=== PATIENT | female | born 1990 | race African-American/Black ===

== ENCOUNTER 2020-12-07 18:11 | Observation (INO) ==
[2020-12-07] MEDS ORDERED: SODIUM CHLORIDE 0.9% 1,000 ML IV STA (19:12)
[2020-12-07] MEDS ORDERED: ACETAMINOPHEN 500 MG TABLET PO STA (19:19)
[2020-12-07 19:48] LABS: Basophils % 0.1 % (0.0-0.8); Hematocrit 33.5 VOL% (35.7-47.0); Hemoglobin 10.5 GM/DL (12.0-16.0); Immature Granulocytes % 0.8 %; Immature Granulocytes Absolute 0.15 #; Lymphocytes # 0.8 10*3/uL (1.4-4.0); Lymphocytes % 4.2 % (21.3-54.2); Mean Corpuscular HGB Conc 31.3 GM/DL (32-36); Mean Corpuscular Volume 84.2 FL (87-102); Monocytes % 6.9 % (1.7-12.7); Platelet Count 405 T/CUMM (130-400); Red Blood Count 3.98 MC/CUMM (3.8-5.5); Red Cell Distribution Width 14.4 % (9.3-17.3); White Blood Count 18.4 T/CUMM (4-12)
[2020-12-07 20:08] LABS: Albumin 3.1 G/DL (3.4-5.0); Bilirubin,Total 0.5 MG/DL (0.20-1.00); Calcium 9.1 MG/DL (8.5-10.1); Osmolality,Calculated 269.2 MOS/KG (273-304); Potassium 4.1 MMOL/L (3.5-5.1)
[2020-12-07 20:26] LABS: Bacteria,Urine Many /HPF (Few); Bilirubin,Urine Negative (Negative); Blood, Urine Moderate mg/dL (Negative); Glucose,Urine (UA) Negative (Negative); Ketones,Urine Negative (Negative); Mucus,Urine Occasional /LPF (Occasional); Nitrite,Urine Negative (Negative); Protein,Urine 100 MG/DL; RBC,Urine 52 /HPF (0-4); Squamous Epithelial Cell,Urine Occasional /HPF (0-10); Urine Appearance CLOUDY (Clear); Urine Color Yellow (Yellow); Urine Specific Gravity 1.016 (1.001-1.035)
[2020-12-07] MEDS ORDERED: cefTRIAXone 1,000 MG in SODIUM CHLORIDE 0.9% 100 ML IV STA (20:30)
[2020-12-07 20:43] LABS: Lymphocytes 4 % (20-55); Segmented Neutrophils 94 % (50-85); Total Cells Counted 100
[2020-12-07] MEDS ORDERED: hydrALAZINE 20 MG/1 ML VIAL IV PRN (20:46)
[2020-12-07] MEDS ORDERED: ONDANSETRON 4 MG/2 ML VIAL IV PRN (20:46)
[2020-12-07] MEDS ORDERED: GLUCAGON 1 MG VIAL IM PRN (20:46)
[2020-12-07] MEDS ORDERED: ZALEPLON 5 MG CAPSULE PO PRN (20:46)
[2020-12-07] MEDS ORDERED: guaiFENesin/DM ER 600-30 MG TABLET PO PRN (20:46)
[2020-12-07] MEDS ORDERED: NICOTINE 21 MG/24 HR PATCH TRANSDERM PRN (20:46)
[2020-12-07] MEDS ORDERED: DEXTROSE 50% 25 GM/50 ML VIAL IV PRN (20:46)
[2020-12-07] MEDS ORDERED: diphenhydrAMINE CAP 25 MG CAPSULE PO PRN (20:46)
[2020-12-07] MEDS: ENOXAPARIN 40 MG/0.4 ML SYRINGE SUBCUT SCH (22:38)
[2020-12-08] MEDS: MORPHINE 2 MG/1 ML SYRINGE IV PRN ×3 (02:14→21:23)
[2020-12-08] MEDS: ACETAMINOPHEN 325 MG TABLET PO PRN ×3 (04:49→23:36)
[2020-12-08] MEDS: SODIUM CHLORIDE 0.9% 1,000 ML IV SCH ×3 (05:51→16:25)
[2020-12-08 06:49] LABS: Basophils % 0.1 % (0.0-0.8); Hematocrit 29.5 VOL% (35.7-47.0); Hemoglobin 9.7 GM/DL (12.0-16.0); Immature Granulocytes % 0.7 %; Immature Granulocytes Absolute 0.12 #; Lymphocytes # 1.5 10*3/uL (1.4-4.0); Lymphocytes % 8.9 % (21.3-54.2); Mean Corpuscular HGB Conc 32.9 GM/DL (32-36); Mean Corpuscular Volume 81.7 FL (87-102); Mean Platelet Volume 10.1 FL (9.6-12.0); Monocytes % 10.6 % (1.7-12.7); Neutrophils % 79.7 % (38.7-73.9); Platelet Count 354 T/CUMM (130-400); Red Blood Count 3.61 MC/CUMM (3.8-5.5); Red Cell Distribution Width 14.3 % (9.3-17.3); White Blood Count 16.3 T/CUMM (4-12)
[2020-12-08 07:12] LABS: Calcium 8.5 MG/DL (8.5-10.1); Osmolality,Calculated 269.1 MOS/KG (273-304); Potassium 3.3 MMOL/L (3.5-5.1)
[2020-12-08] MEDS: BISACODYL 5 MG TABLET PO SCH (09:40)
[2020-12-08] MEDS: PANTOPRAZOLE 40 MG TABLET PO SCH (09:40)
[2020-12-08] MEDS: cefTRIAXone 1,000 MG in SODIUM CHLORIDE 0.9% 100 ML IV SCH (09:41)
[2020-12-08] MEDS: POTASSIUM CHLORIDE 20 MEQ TABLET PO PRN ×3 (14:07→18:48)
[2020-12-08] MEDS: DOCUSATE SODIUM 100 MG CAPSULE PO SCH ×2 (16:24→21:24)
[2020-12-08] MEDS: POLYETHYLENE GLYCOL POWDER 17 GM PACK PO SCH ×2 (16:25→21:25)
[2020-12-08] MEDS: LUBIPROSTONE 8 MCG CAPSULE PO SCH ×2 (16:25→21:22)
[2020-12-08] MEDS: ENOXAPARIN 40 MG/0.4 ML SYRINGE SUBCUT SCH (21:22)
[2020-12-09 00:50] LABS: Basophils % 0.1 % (0.0-0.8); Eosinophils % 0.1 % (0.00-10.9); Hematocrit 28.6 VOL% (35.7-47.0); Hemoglobin 9.1 GM/DL (12.0-16.0); Immature Granulocytes % 0.7 %; Immature Granulocytes Absolute 0.09 #; Lymphocytes # 1.2 10*3/uL (1.4-4.0); Lymphocytes % 9.4 % (21.3-54.2); Mean Corpuscular HGB Conc 31.8 GM/DL (32-36); Mean Corpuscular Volume 83.6 FL (87-102); Mean Platelet Volume 10.1 FL (9.6-12.0); Monocytes % 10.4 % (1.7-12.7); Neutrophils % 79.3 % (38.7-73.9); Platelet Count 320 T/CUMM (130-400); Red Blood Count 3.42 MC/CUMM (3.8-5.5); Red Cell Distribution Width 14.3 % (9.3-17.3)
[2020-12-09] MEDS: POTASSIUM CHLORIDE 20 MEQ TABLET PO PRN (01:30)
[2020-12-09] MEDS: SODIUM CHLORIDE 0.9% 1,000 ML IV SCH ×2 (02:23→12:55)
[2020-12-09 05:58] LABS: Calcium 8.7 MG/DL (8.5-10.1); Osmolality,Calculated 265.2 MOS/KG (273-304); Potassium 4.1 MMOL/L (3.5-5.1)
[2020-12-09] MEDS ORDERED: LINACLOTIDE 145 MCG CAPSULE PO SCH (07:30)
[2020-12-09] MEDS: BISACODYL 5 MG TABLET PO SCH (08:51)
[2020-12-09] MEDS: POLYETHYLENE GLYCOL POWDER 17 GM PACK PO SCH (08:51)
[2020-12-09] MEDS: LUBIPROSTONE 8 MCG CAPSULE PO SCH (08:51)
[2020-12-09] MEDS: DOCUSATE SODIUM 100 MG CAPSULE PO SCH (08:51)
[2020-12-09] MEDS: PANTOPRAZOLE 40 MG TABLET PO SCH (08:51)
[2020-12-09] MEDS: cefTRIAXone 1,000 MG in SODIUM CHLORIDE 0.9% 100 ML IV SCH (12:26)
[2020-12-09] MEDS: MORPHINE 2 MG/1 ML SYRINGE IV PRN (12:33)
[2020-12-09 12:50] VITALS: BP 98/54
[2020-12-09] MEDS ORDERED: POLYETHYLENE GLYCOL POWDER 17 GM PACK PO PRN (15:40)
[2020-12-10] MEDS ORDERED: LEVOFLOXACIN 500 MG TABLET PO SCH (09:00)
== END 2020-12-09 17:20 | disposition home or self-care (01) ==
LOC: N.ED 18:11 → N.EDINP 18:11 → SUATTDRO 20:46 → N.TELEN 21:20
PROVIDERS: ADMIT Internal Medicine; ATTEND Hospitalist